=== PATIENT | male | born 2005 | race Caucasian/White ===

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

== ENCOUNTER 2023-09-29 17:32 | Emergency (ER) | payer OTHER, SELFPAY ==
[2023-09-29 17:32] VITALS: BP 154/88; PULSE 124; RESP 19; TEMP 36.8; O2SAT 97; BMI 21.5
--- NOTE | 2023-09-29 17:55 | EX.ED.UPPERE ---
HPI <CHRISTINA Lima - Last Filed: 09/29/23 20:54> History of Present Illness Chief Complaint: Wound Check Narrative Narrative: Patient presenting today due to an avulsion to the tip of his left index finger that occurred yesterday. He was using a utility knife and accidentally cut his finger. He went to a different ED and they put a piece of what sounds like Gelfoam or Surgicel over the wound and bandaged it. They told him to take that off today but to run it under cool water to prevent it from tearing the skin, he accidentally ripped it off and the wound began to bleed again and he is unable to get it to stop. Tetanus is up-to-date. He denies any other injury. PFSH <CHRISTINA Lima - Last Filed: 09/29/23 20:54> [facility] Medical History no medical history Home Medications lisdexamfetamine 40 mg capsule (Vyvanse) 40 mg PO DAILY 12/21/22 [History Last Taken Unknown] lithium carbonate 150 mg capsule 300 mg PO DAILY 12/21/22 [History Last Taken Unknown] lumateperone 10.5 mg capsule (Caplyta) 10.5 mg PO DAILY 12/21/22 [History Last Taken Unknown] sertraline 50 mg tablet (Zoloft) 50 mg PO DAILY 12/21/22 [History Last Taken Unknown] Allergy/AdvReac Type Severity Reaction Status Date / Time No Known Allergies Allergy Verified 12/21/22 05:31 Social History Smoking Status: Never smoker ROS <CHRISTINA Lima - Last Filed: 09/29/23 20:54> ROS ED Constitutional Constitutional ED: Denies chills or fever(s) Cardiovascular Cardiovascular: Denies chest pain Respiratory/Chest Respiratory/Chest: Denies cough or dyspnea Gastrointestinal Gastrointestinal: Denies abdominal pain, nausea or vomiting Musculoskeletal Musculoskeletal: Denies arthralgias or myalgias Integumentary Reports wounds Neurologic Neurologic: Denies weakness EXAM <CHRISTINA Lima - Last Filed: 09/29/23 20:54> Physical Exam Const Vital Signs: 09/29/23 17:32 Temperature 98.2 F Temperature Source Temporal Pulse Rate 124 H Respiratory Rate 19 H Blood Pressure 154/88 H Blood Pressure Mean 110 Pulse Ox 97 Oxygen Delivery Method Room Air Positive well nourished, well developed and no apparent distress General Appearance ED: well developed HEENT Reports normocephalic and head/scalp atraumatic Mouth ED: Yes moist mucous membranes normal Eyes PERRL and EOMs intact bilaterally Neck full ROM and supple Chest Wall inspection of chest normal Resp normal respiratory effort and clear to auscultation bilaterally Cardio regular rate and regular rhythm GI soft to palpation, non-tender, non-distended and no masses Back/Spine normal ROM and normal to inspection Extremity Extremity Narrative: Avulsion to the tip of the left index finger with active bleeding. Left radial pulse 2+, good capillary refill, sensation intact. Intact flexion extension at the MCP, PIP, and DIP joints of the left hand. Neuro oriented x3, CN's II-XII intact bilaterally, moves all extremities, no focal motor deficits and no sensory deficits noted Sensorium / Orientation: awake and alert Psych mental status grossly normal and thought process normal [facility] <CHRISTINA Lima - Last Filed: 09/29/23 20:54> [facility] Narrative Medical decision making narrative: Patient presenting due to an avulsion to his left index finger, he was seen yesterday where they placed what sounds like Gelfoam with Surgicel on the area and instructed him to take that off today, he accidentally ripped it off causing the finger to start bleeding. We did put a tournicot on the finger, it was cleaned and Dermabond applied, he was observed for several minutes and the tournicot was removed and patient still had a small amount of bleeding, we repeated this process and patient was then given observed, bleeding was then well-controlled. He was placed in a pressure bandage. Wound care instructions discussed. Return instructions discussed. He reports that he was placed on Keflex from the outside facility. He will be discharged home in stable condition. I have personally performed a face to face assessment of the patient and have reviewed the NAZ Note. I performed a substantive portion of the visit including all aspects of the following. My ch findings include: History is 18-year-old male [id number] cut the tip off of his left index finger yesterday with a box sealing machine feeder accidentally. Was seen in ER in [facility]. They placed a dressing on and update his tetanus. Today can get the bleeding to stop. There was nothing to suture repair due to the nature of the injury. Exam is [well-appearing 18-year-old vital signs stable afebrile. Left index finger the tip on the radial side he has an avulsion laceration which is about an inch in length and about half to 1 inch in width. There is active pulsatile bleeding from the small arterial. There is no signs of infection. Finger is neurovascularly intact. He has normal range of motion. There is no redness, pus, red streaks or swelling.] Medical Decision Making [avulsion laceration yesterday. Has active bleeding due to a small arterial. Turnicot ring was applied. Get the bleeding to stop. We cleaned the finger off with soap and water. And applied Dermabond. Dressing will be applied. His bleeding is currently well-controlled. He will be discharged home with wound instructions.] Other additions or changes: [None] <Dr. Feng Beltran MD - Last Filed: 09/29/23 18:08> [facility] Narrative Medical decision making narrative: I have personally performed a face to face assessment of the patient and have reviewed the NAZ Note. I performed a substantive portion of the visit including all aspects of the following. My ch findings include: History is 18-year-old male [id number] cut the tip off of his left index finger yesterday with a box sealing machine feeder accidentally. Was seen in ER in [facility]. They placed a dressing on and update his tetanus. Today can get the bleeding to stop. There was nothing to suture repair due to the nature of the injury. Exam is [well-appearing 18-year-old vital signs stable afebrile. Left index finger the tip on the radial side he has an avulsion laceration which is about an inch in length and about half to 1 inch in width. There is active pulsatile bleeding from the small arterial. There is no signs of infection. Finger is neurovascularly intact. He has normal range of motion. There is no redness, pus, red streaks or swelling.] Medical Decision Making [avulsion laceration yesterday. Has active bleeding due to a small arterial. Turnicot ring was applied. Get the bleeding to stop. We cleaned the finger off with soap and water. And applied Dermabond. Dressing will be applied. His bleeding is currently well-controlled. He will be discharged home with wound instructions.] Other additions or changes: [None] Discharge Plan Triage Chief Complaint: Wound Check ED Midlevel Provider: Kaylene Calderón ED Provider: Feng Beltran Dx/Rx/DC Orders Clinical Impression: Fingertip avulsion Instructions: ED Skin Tear (Skin Avulsion) Prescriptions: No Action Vyvanse 40 mg capsule 40 mg PO DAILY Caplyta 10.5 mg capsule 10.5 mg PO DAILY lithium carbonate 150 mg capsule 300 mg PO DAILY sertraline [Zoloft] 50 mg tablet 50 mg PO DAILY Primary Care Provider: Denton Giron Referrals: Denton Giron MD [Primary Care Provider] - Activity Restrictions/Additional Instructions: Leave our dressing on for for 5 days. If it gets dirty, wet or soaked through with blood then it needs to be changed. After for 5 days change the dressing daily. Gently clean this. If you pull the scab off it will start bleeding again. We need to let it scab up and start healing and will take weeks to months for this to completely heal. Watch for any signs of infection such as pus, red streaks, swelling or fever if seen needs to be reevaluated. Disposition Disposition: Home, Self Care Discharge Date/Time: 09/29/23 20:00
[2023-09-29 19:58] VITALS: BP 124/74; PULSE 87; RESP 16; TEMP 36.6; O2SAT 98
== END 2023-09-29 20:00 | disposition home or self-care (01) ==
PROVIDERS: Emergency Provider Emergency Medicine; PCP Pediatrics; Visit Provider Emergency Medicine
DX: S61.211A Laceration without foreign body of left index finger without damage to nail, initial encounter (principal); W26.0XXA Contact with knife, initial encounter
CPT/HCPCS: 12001; 99282

== ENCOUNTER 2023-09-30 21:24 | Emergency (ER) | payer OTHER, SELFPAY ==
[2023-09-30 21:26] VITALS: BP 127/77; PULSE 90; RESP 16; TEMP 36.7; O2SAT 95; BMI 20.7
--- NOTE | 2023-09-30 21:41 | EX.ED.DYSGE1 ---
HPI History of Present Illness Chief Complaint: Allergic Reaction Informant: patient and parent Narrative Narrative: Mom brings in this 18-year-old patient after he was at a friend's house and started getting swelling in his eyelids, tearing, sneezing, scratchy throat. He states he felt a little wheezy as well, and he developed hives all over. The last time he had this happen he was also at the same friend's house. Unknown etiology. He took 1 tablet of Benadryl and the hives resolved and he no longer feels wheezy. He does not have asthma. Mom states she has an EpiPen, consider using it but held off. PFSH PFSH Home Medications lisdexamfetamine 40 mg capsule (Vyvanse) 40 mg PO DAILY 12/21/22 [History Last Taken Unknown] lithium carbonate 150 mg capsule 300 mg PO DAILY 12/21/22 [History Last Taken Unknown] lumateperone 10.5 mg capsule (Caplyta) 10.5 mg PO DAILY 12/21/22 [History Last Taken Unknown] sertraline 50 mg tablet (Zoloft) 50 mg PO DAILY 12/21/22 [History Last Taken Unknown] prednisone 20 mg tablet 40 mg (2 x 20 mg) PO QHS #6 TABLETS 09/30/23 [Rx Last Taken Unknown] Allergy/AdvReac Type Severity Reaction Status Date / Time No Known Allergies Allergy Verified 09/30/23 21:30 Social History Smoking Status: Never smoker ROS ROS ED Constitutional Constitutional ED: Denies chills or fever(s) Eyes Eyes: Reports as per HPI and puffy eyes ENT ENT ED: Reports rhinorrhea and sore throat Cardiovascular Cardiovascular: Denies chest pain, lightheadedness, pedal edema, racing heartbeat or syncope Respiratory/Chest Respiratory/Chest: Reports dyspnea; Denies cough Integumentary Reports as per HPI and rash EXAM Physical Exam Const Vital Signs: 09/30/23 21:26 Temperature 98.1 F Temperature Source Temporal Pulse Rate 90 Respiratory Rate 16 Blood Pressure 127/77 H Blood Pressure Mean 93 Pulse Ox 95 Oxygen Delivery Method Room Air Positive well nourished and well developed Constitutional Narrative: Well-appearing General Appearance ED: well developed and NAD HEENT HEENT Narrative: Moist oral mucous membranes without edema, stridor, dysphonia. Normal tongue normal lips. Eyes PERRL and EOMs intact bilaterally Eyes Narrative: Diffuse bilateral conjunctival injection and diffuse bilateral eyelid swelling. No active discharge. No tenderness. Neck no lymphadenopathy and supple Resp normal respiratory effort and clear to auscultation bilaterally Extremity normal to inspection Extremity Narrative: Left hand in splint and Ke wrap without any bleeding General Extremety ED: Negative for edema General Extremity: Negative for edema Neuro oriented x3, CN's II-XII intact bilaterally and no sensory deficits noted Motor Exam: strength 5/5 throughout Psych mental status grossly normal Skin no rashes or lesions noted Skin Narrative: No lesions except for possibly 1 right thigh barely-visible urticarial lesion. MDM MDM MDM Narrative Medical decision making narrative: Reassured. I do not think this patient is having an anaphylactic reaction. He appears to have an allergic reaction that reacted to Benadryl including allergic conjunctivitis. I am happy to put him on a short burst of prednisone, I also advise antihistamine eyedrops as needed for his conjunctivitis, Benadryl as needed for urticaria/pruritus, and we discussed appropriate use of the EpiPen, which I do not think needs to be used in this particular scenario. As I discussed with him and mother, the wheezing he subjectively had could have been coming from his upper airway/oropharynx and not been true wheezing as opposed to his lungs. His vital signs are normal. Discharge Plan Triage Chief Complaint: Allergic Reaction ED Provider: Travon Randolph Dx/Rx/DC Orders Clinical Impression: Acute allergic reaction, Acute allergic conjunctivitis of both eyes Instructions: ED Conjunctivitis, Allergic, Allergy Overview Prescriptions: New prednisone 20 mg tablet 40 mg PO QHS Qty: 6 0RF No Action Vyvanse 40 mg capsule 40 mg PO DAILY Caplyta 10.5 mg capsule 10.5 mg PO DAILY lithium carbonate 150 mg capsule 300 mg PO DAILY sertraline [Zoloft] 50 mg tablet 50 mg PO DAILY Primary Care Provider: Denton Giron Referrals: Denton Giron MD [Primary Care Provider] - As Needed Disposition Disposition: Home, Self Care
[2023-09-30] MEDS: predniSONE 20 MG Tablet 40 MG PO (21:49)
[2023-09-30 21:53] VITALS: BP 111/92; PULSE 78; RESP 16; TEMP 36.7; O2SAT 97
== END 2023-09-30 22:16 | disposition home or self-care (01) ==
PROVIDERS: Emergency Provider Emergency Medicine; PCP Pediatrics; Visit Provider Emergency Medicine
DX: T78.40XA Allergy, unspecified, initial encounter (principal); H10.13 Acute atopic conjunctivitis, bilateral; Y92.019 Unspecified place in single-family (private) house as the place of occurrence of the external cause
CPT/HCPCS: 99282

== ENCOUNTER 2024-08-27 12:31 | Emergency (ER) | payer OTHER, MEDICAID, SELFPAY ==
[2024-08-27 12:31] VITALS: BP 128/77; PULSE 83; RESP 18; TEMP 37; O2SAT 99; BMI 22.0
--- NOTE | 2024-08-27 13:03 | ED.VIS.GI ---
HPI HPI - GI History of Present Illness Chief Complaint: GI Bleed Informant: patient Narrative Narrative: 19-year-old healthy male presents with symptoms started today, he feels tired, lightheaded, his he started having periumbilical abdominal discomfort this morning, vomited once after eating but without coffee-ground emesis or hematemesis, but then he had 2 bouts of black tarry stools without any blood. He states he drinks alcohol several times a week, usually several shots/drinks of high proof alcohol such as whiskey, and has been doing this since maybe January but not before that, about half of the year. [facility] Medical History Stiffness of finger joint of left hand Home Medications ?Medication ?Instructions ?Recorded ?Last Taken ?Type sertraline 50 mg tablet (Zoloft) 50 mg PO DAILY 12/21/22 Unknown History lisdexamfetamine 20 mg capsule 20 mg PO QAM 05/10/24 Unknown History (Vyvanse) lithium carbonate 450 mg 450 mg PO QDAY 05/10/24 Unknown History tablet,extended release pantoprazole 40 mg tablet,delayed 40 mg PO DAILY #14 tabs 08/27/24 Unknown Rx release Allergy/AdvReac Type Severity Reaction Status Date / Time Seasonal Allergies: Uncoded Allergy Other Verified 05/10/24 08:08 (environmental) Family History no significant family his Social History Smoking Status: Current every day smoker tobacco type: e-cigarettes ROS ROS ED Constitutional Constitutional ED: Reports fatigue; Denies chills or fever(s) Eyes Eyes: Denies change in vision or diplopia ENT ENT ED: Denies rhinorrhea or sore throat Cardiovascular Cardiovascular: Reports lightheadedness; Denies chest pain or palpitations Respiratory/Chest Respiratory/Chest: Denies cough or dyspnea Gastrointestinal Gastrointestinal: Reports abdominal pain, melena, nausea and vomiting; Denies diarrhea Genitourinary Genitourinary ED: Denies dysuria or hematuria Musculoskeletal Musculoskeletal: Denies back pain or neck pain Integumentary Denies abscess or rash Neurologic Neurologic: Denies headache(s), paresthesias or weakness Psychiatric Psychiatric: Denies anxiety or suicidal thoughts EXAM Physical Exam Const Vital Signs: 08/27/24 12:31 08/27/24 13:09 08/27/24 14:29 Temperature 98.6 F Temperature Source Oral Pulse Rate 83 61 Pulse Rate [Lying] 71 Pulse Rate [Sitting (for 1 minute prior to obtaining)] 66 Pulse Rate [Standing (for 1 minute prior to obtaining)] 87 Respiratory Rate 18 Blood Pressure 128/77 H 130/54 H Blood Pressure [Lying] 124/79 H Blood Pressure [Sitting (for 1 minute prior to obtaining)] 129/86 H Blood Pressure [Standing (for 1 minute prior to obtaining)] 128/91 H Blood Pressure Mean 94 79 Blood Pressure Mean [Lying] 94 Blood Pressure Mean [Sitting (for 1 minute prior to obtaining)] 100 Blood Pressure Mean [Standing (for 1 minute prior to obtaining)] 103 Pulse Ox 99 97 Oxygen Delivery Method Room Air Room Air 08/27/24 14:46 Temperature 98.6 F Temperature Source Pulse Rate 61 Pulse Rate [Lying] Pulse Rate [Sitting (for 1 minute prior to obtaining)] Pulse Rate [Standing (for 1 minute prior to obtaining)] Respiratory Rate 15 Blood Pressure 130/54 H Blood Pressure [Lying] Blood Pressure [Sitting (for 1 minute prior to obtaining)] Blood Pressure [Standing (for 1 minute prior to obtaining)] Blood Pressure Mean 79 Blood Pressure Mean [Lying] Blood Pressure Mean [Sitting (for 1 minute prior to obtaining)] Blood Pressure Mean [Standing (for 1 minute prior to obtaining)] Pulse Ox 97 Oxygen Delivery Method Positive well nourished and well developed General Appearance ED: well developed and NAD HEENT Reports moist mucous membranes normocephalic and atraumatic Eyes PERRL and EOMs intact bilaterally Neck full ROM and supple Resp normal respiratory effort and clear to auscultation bilaterally Cardio regular rate, regular rhythm and no murmurs Rate: Negative for tachycardic GI non-distended GI Narrative: Mild periumbilical abdominal tenderness without guarding or rebound. Rectal nontender, trace specimen present if any, no blood, no obvious melena at this time. Auscultation: normoactive bowel sounds Palpation: soft Back/Spine no CVA tenderness General Back: other FROM Extremity normal to inspection General Extremety ED: Negative for edema, pulses abnormal or tenderness General Extremity: Negative for edema or pulses abnormal Neuro oriented x3, CN's II-XII intact bilaterally and no sensory deficits noted Sensorium / Orientation: awake and alert Motor Exam: strength 5/5 throughout Skin no rashes or lesions noted and no wounds MDM MDM MDM Narrative Medical decision making narrative: Concern here would be upper GI bleed from alcoholic gastritis. Also differential pancreatitis, hepatitis, biliary colic. Screening labs show no elevated BUN or anemia, no elevated liver enzymes, normal lipase, and a negative Hemoccult. It is possible this was a false negative given that is very limited specimen present, but his orthostatics are negative, and he feels better after pantoprazole and Mylanta/Zofran. My recommendation would be a 2-week course of PPI, avoiding alcohol, following up if he has persistent symptoms. He is comfortable with that plan. Lab Data Attestation: I reviewed the patient's lab results. Labs: Laboratory Results - last 24 hr 08/27/24 08/27/24 13:00 13:10 WBC 10.4 RBC 4.82 Hgb 16.0 Hct 46.3 MCV 96.1 H MCH 33.2 H MCHC 34.6 RDW Std Deviation 45.6 H RDW Coeff of Juliet 12.8 Plt Count 325 MPV 8.9 Immature Gran % (Auto) 0.300 Neut % (Auto) 65.3 Lymph % (Auto) 23.5 Nuckolls % (Auto) 7.6 Eos % (Auto) 2.3 Baso % (Auto) 1.0 Absolute Neuts (auto) 6.8 Absolute Lymphs (auto) 2.44 Nucleated RBC % 0 Sodium 140 Potassium 5.4 H Chloride 104 Carbon Dioxide 25.9 Anion Gap 9 BUN 10 Creatinine 0.98 Estim Creat Clear Calc 110.92 Est GFR (MDRD) Non-Af 113 BUN/Creatinine Ratio 10.5 Glucose 91 Calcium 9.7 Total Bilirubin 0.41 AST 23 ALT 15 Alkaline Phosphatase 71 Total Protein 7.8 Albumin 4.8 Globulin 3.0 Albumin/Globulin Ratio 1.6 Lipase 34 Blood Type O NEGATIVE Antibody Screen NEGATIVE Radiography Diagnostic Testing: Clinical Impression(s) from Imaging Studies Acute Abdomen Series 08/27/24 13:20 IMPRESSION: No acute process detected. Reading Location: [facility] Discharge Plan Triage Chief Complaint: GI Bleed ED Provider: Travon Randolph Dx/Rx/DC Orders Clinical Impression: Acute gastritis Instructions: Treating Gastritis Prescriptions: New pantoprazole 40 mg tablet,delayed release (DR/EC) 40 mg PO DAILY Qty: 14 0RF No Action lisdexamfetamine [Vyvanse] 20 mg capsule 20 mg PO QAM lithium carbonate 450 mg tablet extended release 450 mg PO QDAY sertraline [Zoloft] 50 mg tablet 50 mg PO DAILY Primary Care Provider: José Miguel Berger NP Referrals: José Miguel Berger NP, APRN-C [Primary Care Provider] - 1 Week if not improving Print Language: [place] Disposition Disposition: Home, Self Care
[2024-08-27 13:09] VITALS: BP 124/79; BP 128/91; BP 129/86; PULSE 66; PULSE 71; PULSE 87
[2024-08-27] MEDS: Ondansetron 4 MG/2 ML Vial IV (13:15)
[2024-08-27] MEDS: Mag Hydrox/Al Hydrox/Simeth 30 ML UDC PO (13:16)
--- NOTE | 2024-08-27 13:20 | RAD_ITS ---
PROCEDURE: ACUTE ABDOMEN INC CHEST 08/27/2024 REASON FOR EXAM: Abdominal pain. TECHNIQUE: Single view chest with supine and upright views of the abdomen. COMPARISON: None. FINDINGS: Hardware: None. Heart: Normal size. Lungs: Lungs are clear. Bowel gas: Gas pattern is unremarkable. Nonobstructed. Free air: No free air detected. Calcifications: No suspicious calcifications. Bones: Unremarkable. Other: RAD/Acute Abdomen Inc Chest IMPRESSION: No acute process detected. Reading Location: [facility]
[2024-08-27 13:39] LABS: ALB/GLOB Ratio 1.6 RATIO (0.9-2.4); AST(SGOT) 23 U/L (<=37); Alanine Aminotransfer ALT/SGPT 15 U/L (<=46); Albumin, Serum 4.8 g/dL (3.5-5.0); Alkaline Phosphatase 71 U/L (40-129); Anion Gap 9 (5-15); BUN 10 mg/dL (4-19); BUN/Creat Ratio 10.5 RATIO (10-20); Calcium,Total 9.7 mg/dL (7.6-11.0); Carbon Dioxide 25.9 mmol/L (21.0-32.0); Chloride 104 mmol/L (98-108); Creatinine, Serum 0.98 mg/dL (0.70-1.20); EST Glomerular Filtration Rate 113 (>60); Estimated Creatinine Clearance 110.92 ml/min (50-250); Glucose 91 mg/dL (70-99); Lipase 34 U/L (13-75); Potassium 5.4 mmol/L (3.3-5.1); Protein, Total 7.8 g/dL (5.9-8.4); Sodium Level 140 mmol/L (133-145); Total Bilirubin 0.41 mg/dL (0.00-1.30)
[2024-08-27] MEDS: Sucralfate 1 GM Tablet PO (13:42)
[2024-08-27] MEDS: Pantoprazole Sodium 40 MG in 0.9% Normal Saline (100mL MB+) 100 ML 330 MG IV (13:42)
[2024-08-27 13:56] LABS: Absolute Lymphocyte Count 2.44 X10^3/uL (0.83-4.51); Absolute Neutrophil Count 6.8 X10^3/uL (2.0-7.7); Eosinophil# 0.24 X10^3/uL; Eosinophils% 2.3 % (0-5); Hematocrit 46.3 % (40-54); Lymphocyte # 2.44 X10^3/ul (0.83-4.51); Lymphocyte % 23.5 % (19-41); Mean Corp Hgb Conc 34.6 g/dL (32-36); Mean Corpuscular Hgb 33.2 pg (27.0-32.0); Mean Corpuscular Volume 96.1 fL (80-94); Mean Platelet Vol. 8.9 fl (6.2-12.0); Monocyte# 0.79 X10^3/uL; Monocyte% 7.6 % (0-10); NRBC Flagged by Analyzer 0 % (0-5); Neutrophil % 65.3 % (47-70); Platelet Count 325 K/mm3 (150-450); RBC Distribution Width CV 12.8 % (11.6-14.6); RBC Distribution Width SD 45.6 fl (35.1-43.9); Red Blood Count 4.82 M/mm3 (4.6-6.2); White Blood Count 10.4 K/mm3 (4.4-11.0)
[2024-08-27 14:29] VITALS: BP 130/54; PULSE 61; O2SAT 97
[2024-08-27 14:46] VITALS: BP 130/54; PULSE 61; RESP 15; TEMP 37; O2SAT 97
== END 2024-08-27 14:53 | disposition home or self-care (01) ==
PROVIDERS: Emergency Provider Emergency Medicine; PCP Nurse Practitioner Family; Visit Provider Emergency Medicine
DX: K92.2 Gastrointestinal hemorrhage, unspecified (principal); K29.00 Acute gastritis without bleeding; F17.290 Nicotine dependence, other tobacco product, uncomplicated
CPT/HCPCS: 74022; 80053; 82274; 83690; 85025; 86850; 86900; 86901; 96365; 96375; 99283; A4216; J2405

== ENCOUNTER 2025-01-18 10:33 | Emergency (ER) | payer OTHER, MEDICAID, SELFPAY ==
[2025-01-18 10:34] VITALS: BP 125/84; PULSE 94; RESP 16; TEMP 36.6; O2SAT 99; BMI 23.8
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
[2025-01-18] MEDS: Ketorolac 30 MG/ML Syringe IM (11:48)
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
[2025-01-18 12:31] VITALS: BP 125/84; PULSE 94; RESP 16; TEMP 36.6; O2SAT 99
== END 2025-01-18 12:33 | disposition home or self-care (01) ==
PROVIDERS: Emergency Provider Emergency Medicine; PCP Nurse Practitioner Family; Visit Provider Emergency Medicine
DX: S16.1XXA Strain of muscle, fascia and tendon at neck level, initial encounter (principal); S29.012A Strain of muscle and tendon of back wall of thorax, initial encounter; V49.88XA Car occupant (driver) (passenger) injured in other specified transport accidents, initial encounter; F17.290 Nicotine dependence, other tobacco product, uncomplicated; Z79.899 Other long term (current) drug therapy
CPT/HCPCS: 72040; 72072; 96372; 99282